=== PATIENT | male | born 1970 | race Caucasian/White ===

== ENCOUNTER 2016-12-29 09:09 | Emergency (ER) | payer OTHER ==
[~2016-12-29] VITALS: Ht 182.9 cm; Wt 86.2 kg
[~2016-12-29 09:09] MED LIST: IBUPROFEN600 MG PO; LORTAB 5/500 501 TAB PO; NOMEDS; ZOFRAN4 MG PO
[2016-12-29] MEDS ORDERED: PREDNISONE 20MG20 MG PO (09:33)
[2016-12-29] MEDS ORDERED: CEFTIN 250MG T250 MG PO (09:33)
--- NOTE | 2016-12-29 09:33 | [facility]gent Treatment Center Report ---
History of Present Issue Date/Time Seen by Provider 12/29/16 0926 Visit Reason Pt arrived:Walked Presenting Problem:PT STATES CHEST CONGESTION, HEADACHE, CHILLS AND EAR CONGESTION, COUGH FOR THREE DAYS Location if Accident: Onset of symptoms date/time:/ or onset unknown for:MEDICAL HX UNKNOWN Have you (or family members/close friends) recently traveled outside the [place]? N If Yes, where/when: Have you had exposure to infectious disease within the past month? TB? Other? Specify: Source patient, RN notes reviewed Exam Limitations no limitations Comment Patient has 5 day history of ear pain, congestion, cough and wheezing. No fever , but has been cold and chilling. No vomiting or diarrhea. ALLERGIES Coded Allergies: No Known Allergies (12/29/16) History Medical History General CAD? No Angina: No NM: No Hypertension? No Hyperlipidemia? No CHF? No DVT? No PE? No COPD? No Asthma? No Anemia? No GERD? No Gastric ulcers? No GI Bleed? No Hernia? No Thyroid Problems? No Hypothyroidism? No CVA? No Seizures? No Diabetes? No Renal Insuffiency? No UTI? No Stones? No BPH? No GB Disease: No Nephritic Syndrome? No Asplenia? No Hepatitis? No Sickle Cell Disease? No Arthritis? No Migraines? No Cataracts? No Glaucoma? No MRSA? No HIV? No TB? No Anxiety? No Depression? No Cancer? No Site: N More? No Immunization HX DT/Tetanus NOT SURE Surgical Hx Previous Surgery?Y CIRCUMCISION Social History Smoking Hx Smoker: Current Every Day Smoker Tobacco: Yes Type Cigarettes Packs/day < 1 Pack Alcohol Alcohol: No Review of Systems All Other Systems Reviewed and Negative Constitutional chills ENT nose congestion. Respiratory cough, wheezing Physical Exam Vital Signs Vital Signs Date Time Temp Pulse Resp B/P Pulse O2 O2 Flow FiO2 Ox Delivery Rate 12/29 0920 97.9 90 18 111/84 97 General Appearance normal appearance, no apparent distress Ear, Nose, Throat hearing grossly normal, normal ENT inspection Respiratory Status No: respiratory distress, trachea midline, chest symmetrical. Lung Sounds bilateral: decreased breath sounds, rhonchi. Cardiovascular normal exam, regular rate/rhythm, no peripheral edema, no gallop, no JVD, no murmur, no rub Extremities non-tender, normal range of motion, normal inspection, normal capillary refill Neurologic alert, normal exam, oriented x 3 Mental status normal mood/affect Medical Decision Making LABS/Meds/Orders Pt receiving controlled substance in ED? No Departure Departure Time of Disposition 0931 Disposition DC Home or Self Care(routine) Clinical Impression Primary Impression: Bronchitis Condition STABLE Referrals Silvano HIGGINS,Jax Giles (PCP) Patient Instructions Acute Bronchitis Discharge Counseling Counseled pt/family regarding diagnosis, home care, follow up needs Prescriptions Current Visit Scripts CEFUROXIME AXETIL (CEFTIN 250MG TAB) 250 MG PO BID #14 TAB Prednisone (Prednisone 20MG) 20 MG PO BID #10 TAB at 0929
[2016-12-29 09:34] VITALS: BP 111/84
== END 2016-12-29 09:35 | disposition home or self-care (01) ==
LOC: UTC 09:09
DX: J20.9 Acute bronchitis, unspecified (principal)